=== PATIENT | male | born 1995 | race Caucasian/White ===

== ENCOUNTER 2025-07-01 08:35 | Day surgery (SDC) | payer BC ==
[~2025-07-01 08:35] MED LIST: Midazolam 1 MG/ML 2 ML SDV ONE; Propofol 200 MG/20 ML SDV ONE; fentaNYL 100 MCG/2 ML SDV ONE
[2025-07-01] MEDS: Lactated Ringers 1,000 ML IV SCH (08:50)
[2025-07-01] MEDS ORDERED: Propofol 200 MG/20 ML SDV ONE (10:55)
== END 2025-07-01 12:00 | disposition home or self-care (01) ==
LOC: JP.SDS 08:35
PROVIDERS: ATTEND Surgery
DX: Z12.11 Encounter for screening for malignant neoplasm of colon (principal); K63.5 Polyp of colon; F17.200 Nicotine dependence, unspecified, uncomplicated; Z80.0 Family history of malignant neoplasm of digestive organs
CPT/HCPCS: 00811; 45380; J2250; J2704; J3010; J7120; 88305